=== PATIENT | male | born 1965 | race American Indian/Alaskan Native ===

== ENCOUNTER 2019-02-20 21:19 | Emergency (ER) | payer MEDICARE ==
[2019-02-20 21:30] VITALS: BP 146/91
[2019-02-20 21:58] LABS: Bacteria,Urine 1+ /HPF (Negative); Bilirubin,Urine NEG (Negative); Blood,Urine NEG (Negative); Color,Urine Amber (Yellow); Mucus,Urine 3+ /HPF
[2019-02-20 22:26] LABS: Amphetamine Screen,Urine PRESUMPTIVE NEGATIVE; Benzodiazepines Screen,Urine PRESUMPTIVE NEGATIVE; Methadone Screen,Urine PRESUMPTIVE NEGATIVE; Opiate Screen,Urine PRESUMPTIVE NEGATIVE
[2019-02-20 22:51] LABS: Cannabinoid Screen,Urine PRESUMPTIVE POSITIVE; Cocaine Screen,Urine PRESUMPTIVE POSITIVE
[2019-02-20 22:54] LABS: Basophils % (Auto) 0.9 % (0.0-1.8); Eosinophils # (Auto) 0.1 K/mm3 (0.0-0.4); Eosinophils % (Auto) 1.3 % (0.0-4.3); Hematocrit 45.5 % (35.5-45.6); Lymphocytes # (Auto) 2.4 K/mm3 (1.2-5.4); Lymphocytes % (Auto) 50.9 % (13.4-35.0); Mean Corpuscular HGB Conc 35 % (32-34); Mean Corpuscular Volume 93 fl (84-94); Monocytes # (Auto) 0.3 K/mm3 (0.0-0.8); Monocytes % (Auto) 7.2 % (0.0-7.3); Platelet Count 165 K/mm3 (140-440); Red Blood Count 4.89 M/mm3 (3.65-5.03); Red Cell Distribution Width 14.8 % (13.2-15.2)
[2019-02-20 23:08] LABS: BUN/Creatinine Ratio 15; Blood Urea Nitrogen 12 mg/dL (9-20); Calcium 8.8 mg/dL (8.4-10.2); Hemolysis Index 25
--- NOTE | 2019-02-20 23:09 | Emergency Department Report ---
ED Psych HPI - General Chief Complaint: Medical Clearance Stated Complaint: MEDICAL CLEARANCE Time Seen by Provider: 02/20/19 22:17 Source: patient, EMS Mode of arrival: Ambulatory Limitations: No Limitations - History of Present Illness Initial Comments: 53-year-old male with a past medical history hypertension, PTSD, depression, polysubstance abuse presents to the hospital to be sent from [facility] for medical clearance. Patient states he has been depressed more for the past one month and increasing his use of marijuana, alcohol, and cocaine. Last use of all substances was 2 days ago. Patient reports a history of alcohol withdrawal tremors past. He denies suicidal ideation, homicidal ideation, or psychosis - Related Data Previous Rx's Medication Instructions Recorded Last Taken Type HYDROcodone/ACETAMINOPHEN [[place] 1 each PO Q6H #14 tablet 10/07/13 Unknown Rx 5/325 Tablet] Allergies Allergy/AdvReac Type Severity Reaction Status Date / Time No Known Allergies Allergy Unverified 10/07/13 08:14 ED Review of Systems ROS: Stated complaint: MEDICAL CLEARANCE Other details as noted in HPI Comment: All other systems reviewed and negative ED Past Medical Hx - Past Medical History Previous Medical History?: Yes Hx Hypertension: Yes Hx Psychiatric Treatment: Yes (PTSD, depression, substance) - Surgical History Past Surgical History?: Yes Additional Surgical History: heart cath - Social History Smoking Status: Never Smoker Substance Use Type: Alcohol, Cocaine, Marijuana - Medications Home Medications: Home Medications Medication Instructions Recorded Confirmed Last Taken Type HYDROcodone/ACETAMINOPHEN [[place] 1 each PO Q6H #14 tablet 10/07/13 02/20/19 Unknown Rx 5/325 Tablet] ED Physical Exam - General Limitations: No Limitations - Other Other exam information: General: No limitations, patient is alert in no acute distress Head exam: Atraumatic, normocephalic Eyes exam: Normal appearance, pupils equal reactive to light, extraocular movements intact ENT: Moist mucous membrane Neck exam: Normal inspection, full range of motion, no meningismus nontender Respiratory exam: Clear to auscultation bilateral, no wheezes, rales, crackles Cardiovascular: Normal rate and rhythm, normal heart sounds Abdomen: Soft, nondistended, and nontender, with normal bowel sounds, no rebound, or guarding Extremity: Full range of motion normal inspection no deformity Back: Normal Inspection, full range of motion, no tenderness Neurologic: Alert, oriented x3, cranial nerves intact, no motor or sensory deficit, no tremor Psychiatric: normal affect, normal mood Skin: Warm, dry, intact ED Course Vital Signs 02/20/19 21:30 Temperature 98.7 F Pulse Rate 74 Respiratory 18 Rate Blood Pressure 146/91 [Left] O2 Sat by Pulse 99 Oximetry - Consultations Consultation #1: 02/21/19 mental health ED Medical Decision Making - Lab Data Result diagrams: 02/20/19 22:43 02/20/19 22:43 Lab Results 02/20/19 02/20/19 02/20/19 Range/Units 21:30 21:30 22:43 WBC (4.5-11.0) K/mm3 RBC (3.65-5.03) M/mm3 Hgb (11.8-15.2) gm/dl Hct (35.5-45.6) % MCV (84-94) fl MCH (28-32) pg MCHC (32-34) % RDW (13.2-15.2) % Plt Count (140-440) K/mm3 Lymph % (Auto) (13.4-35.0) % [place] % (Auto) (0.0-7.3) % Eos % (Auto) (0.0-4.3) % Baso % (Auto) (0.0-1.8) % Lymph # (1.2-5.4) K/mm3 [place] # (0.0-0.8) K/mm3 Eos # (0.0-0.4) K/mm3 Baso # (0.0-0.1) K/mm3 Seg Neutrophils % (40.0-70.0) % Seg Neutrophils # (1.8-7.7) K/mm3 Sodium (137-145) mmol/L Potassium (3.6-5.0) mmol/L Chloride (98-107) mmol/L Carbon Dioxide (22-30) mmol/L Anion Gap mmol/L BUN (9-20) mg/dL Creatinine (0.8-1.5) mg/dL Estimated GFR ml/min BUN/Creatinine Ratio % Glucose (75-100) mg/dL Calcium (8.4-10.2) mg/dL Magnesium (1.7-2.3) mg/dL Total Creatine Kinase (55-170) units/L Urine Color Lisa (Yellow) Urine Turbidity Slightly-cloudy (Clear) Urine pH 5.0 (5.0-7.0) Ur Specific [place] 1.036 H (1.003-1.030) Urine Protein 30 mg/dl (Negative) mg/dL Urine Glucose (UA) Neg (Negative) mg/dL Urine Ketones Tr (Negative) mg/dL Urine Blood Neg (Negative) Urine Nitrite Neg (Negative) Urine Bilirubin Neg (Negative) Urine Urobilinogen 4.0 (<2.0) mg/dL Ur Leukocyte Esterase Neg (Negative) Urine WBC (Auto) 4.0 (0.0-6.0) /HPF Urine RBC (Auto) 4.0 (0.0-6.0) /HPF U Epithel Cells (Auto) < 1.0 (0-13.0) /HPF Urine Bacteria (Auto) 1+ (Negative) /HPF Urine Mucus 3+ /HPF Salicylates < 0.3 L (2.8-20.0) mg/dL Urine Opiates Screen Presumptive negative Urine Methadone Screen Presumptive negative Acetaminophen (10.0-30.0) ug/mL Ur Barbiturates Screen Presumptive negative Ur Phencyclidine Scrn Presumptive negative Ur Amphetamines Screen Presumptive negative U Benzodiazepines Scrn Presumptive negative Urine Cocaine Screen Presumptive positive U Marijuana (THC) Screen Presumptive positive Drugs of Abuse Note Disclamer Plasma/Serum Alcohol (0-0.07) % 02/20/19 02/20/19 02/20/19 Range/Units 22:43 22:43 22:43 WBC (4.5-11.0) K/mm3 RBC (3.65-5.03) M/mm3 Hgb (11.8-15.2) gm/dl Hct (35.5-45.6) % MCV (84-94) fl MCH (28-32) pg MCHC (32-34) % RDW (13.2-15.2) % Plt Count (140-440) K/mm3 Lymph % (Auto) (13.4-35.0) % [place] % (Auto) (0.0-7.3) % Eos % (Auto) (0.0-4.3) % Baso % (Auto) (0.0-1.8) % Lymph # (1.2-5.4) K/mm3 [place] # (0.0-0.8) K/mm3 Eos # (0.0-0.4) K/mm3 Baso # (0.0-0.1) K/mm3 Seg Neutrophils % (40.0-70.0) % Seg Neutrophils # (1.8-7.7) K/mm3 Sodium 138 (137-145) mmol/L Potassium 3.7 (3.6-5.0) mmol/L Chloride 102.3 (98-107) mmol/L Carbon Dioxide 24 (22-30) mmol/L Anion Gap 15 mmol/L BUN 12 (9-20) mg/dL Creatinine 0.8 (0.8-1.5) mg/dL Estimated GFR > 60 ml/min BUN/Creatinine Ratio 15 % Glucose 101 H (75-100) mg/dL Calcium 8.8 (8.4-10.2) mg/dL Magnesium (1.7-2.3) mg/dL Total Creatine Kinase (55-170) units/L Urine Color (Yellow) Urine Turbidity (Clear) Urine pH (5.0-7.0) Ur Specific [place] (1.003-1.030) Urine Protein (Negative) mg/dL Urine Glucose (UA) (Negative) mg/dL Urine Ketones (Negative) mg/dL Urine Blood (Negative) Urine Nitrite (Negative) Urine Bilirubin (Negative) Urine Urobilinogen (<2.0) mg/dL Ur Leukocyte Esterase (Negative) Urine WBC (Auto) (0.0-6.0) /HPF Urine RBC (Auto) (0.0-6.0) /HPF U Epithel Cells (Auto) (0-13.0) /HPF Urine Bacteria (Auto) (Negative) /HPF Urine Mucus /HPF Salicylates (2.8-20.0) mg/dL Urine Opiates Screen Urine Methadone Screen Acetaminophen < 5.0 L (10.0-30.0) ug/mL Ur Barbiturates Screen Ur Phencyclidine Scrn Ur Amphetamines Screen U Benzodiazepines Scrn Urine Cocaine Screen U Marijuana (THC) Screen Drugs of Abuse Note Plasma/Serum Alcohol < 0.01 (0-0.07) % 02/20/19 02/20/19 Range/Units 22:43 22:43 WBC 4.6 (4.5-11.0) K/mm3 RBC 4.89 (3.65-5.03) M/mm3 Hgb 16.0 H (11.8-15.2) gm/dl Hct 45.5 (35.5-45.6) % MCV 93 (84-94) fl MCH 33 H (28-32) pg MCHC 35 H (32-34) % RDW 14.8 (13.2-15.2) % Plt Count 165 (140-440) K/mm3 Lymph % (Auto) 50.9 H (13.4-35.0) % [place] % (Auto) 7.2 (0.0-7.3) % Eos % (Auto) 1.3 (0.0-4.3) % Baso % (Auto) 0.9 (0.0-1.8) % Lymph # 2.4 (1.2-5.4) K/mm3 [place] # 0.3 (0.0-0.8) K/mm3 Eos # 0.1 (0.0-0.4) K/mm3 Baso # 0.0 (0.0-0.1) K/mm3 Seg Neutrophils % 39.7 L (40.0-70.0) % Seg Neutrophils # 1.8 (1.8-7.7) K/mm3 Sodium (137-145) mmol/L Potassium (3.6-5.0) mmol/L Chloride (98-107) mmol/L Carbon Dioxide (22-30) mmol/L Anion Gap mmol/L BUN (9-20) mg/dL Creatinine (0.8-1.5) mg/dL Estimated GFR ml/min BUN/Creatinine Ratio % Glucose (75-100) mg/dL Calcium (8.4-10.2) mg/dL Magnesium 2.20 (1.7-2.3) mg/dL Total Creatine Kinase 288 H (55-170) units/L Urine Color (Yellow) Urine Turbidity (Clear) Urine pH (5.0-7.0) Ur Specific [place] (1.003-1.030) Urine Protein (Negative) mg/dL Urine Glucose (UA) (Negative) mg/dL Urine Ketones (Negative) mg/dL Urine Blood (Negative) Urine Nitrite (Negative) Urine Bilirubin (Negative) Urine Urobilinogen (<2.0) mg/dL Ur Leukocyte Esterase (Negative) Urine WBC (Auto) (0.0-6.0) /HPF Urine RBC (Auto) (0.0-6.0) /HPF U Epithel Cells (Auto) (0-13.0) /HPF Urine Bacteria (Auto) (Negative) /HPF Urine Mucus /HPF Salicylates (2.8-20.0) mg/dL Urine Opiates Screen Urine Methadone Screen Acetaminophen (10.0-30.0) ug/mL Ur Barbiturates Screen Ur Phencyclidine Scrn Ur Amphetamines Screen U Benzodiazepines Scrn Urine Cocaine Screen U Marijuana (THC) Screen Drugs of Abuse Note Plasma/Serum Alcohol (0-0.07) % - Medical Decision Making pt accepted by [facility], awaiting transport - Differential Diagnosis drug abuse, ptsd, depression Critical Care Time: No Critical care attestation.: If time is entered above; I have spent that time in minutes in the direct care of this critically ill patient, excluding procedure time. ED Disposition Clinical Impression: Depression, Cocaine abuse, Alcohol abuse, Marijuana abuse, Medical clearance for psychiatric admission Disposition: DC/TX-65 PSY HOSP/PSY UNIT Is pt being admited?: No Condition: Stable Time of Disposition: 04:23 (awaiting transport)
== END 2019-02-21 04:50 ==
LOC: ED 21:19
DX: F32.9 Major depressive disorder, single episode, unspecified (principal); F43.10 Post-traumatic stress disorder, unspecified; F19.10 Other psychoactive substance abuse, uncomplicated; F14.10 Cocaine abuse, uncomplicated; F12.10 Cannabis abuse, uncomplicated; F10.10 Alcohol abuse, uncomplicated; I10 Essential (primary) hypertension
CPT/HCPCS: 36415; 80048; 80307; 81001; 82550; 83735; 85025; 99284; G0480; 80320

== ENCOUNTER 2019-09-24 20:14 | Emergency (ER) | payer MEDICARE ==
[2019-09-24 20:48] VITALS: BP 135/78
--- NOTE | 2019-09-24 20:55 | Event Note ---
ED Screening Note Date of service: 09/24/19 Time: 20:53 ED Screening Note: Pt presents for medical clearance for admission to a detox facility x today states he wants to detox from alcohol denies any hx of alcohol withdrawal seizures +tremors This initial assessment/diagnostic orders/clinical plan/treatment(s) is/are subject to change based on patients health status, clinical progression and re- assessment by fellow clinical providers in the ED. Further treatment and workup at subsequent clinical providers discretion. Patient/guardian urged not to elope from the ED as their condition may be serious if not clinically assessed and managed. Initial orders include: labs
[2019-09-24 21:34] LABS: Bilirubin,Urine NEG (Negative); Blood,Urine NEG (Negative); Color,Urine Amber (Yellow); Mucus,Urine 3+ /HPF; Protein,Urine <15 mg/dL mg/dL (Negative)
[2019-09-24 21:41] LABS: Amphetamine Screen,Urine PRESUMPTIVE NEGATIVE; Benzodiazepines Screen,Urine PRESUMPTIVE NEGATIVE; Methadone Screen,Urine PRESUMPTIVE NEGATIVE; Opiate Screen,Urine PRESUMPTIVE NEGATIVE
[2019-09-24 21:42] LABS: Basophils % (Auto) 0.6 % (0.0-1.8); Eosinophils # (Auto) 0.1 K/mm3 (0.0-0.4); Eosinophils % (Auto) 1.2 % (0.0-4.3); Hematocrit 44.9 % (35.5-45.6); Hemoglobin 15.3 gm/dl (11.8-15.2); Lymphocytes # (Auto) 2.5 K/mm3 (1.2-5.4); Lymphocytes % (Auto) 52.8 % (13.4-35.0); Mean Corpuscular HGB Conc 34 % (32-34); Mean Corpuscular Volume 92 fl (84-94); Monocytes # (Auto) 0.4 K/mm3 (0.0-0.8); Monocytes % (Auto) 7.8 % (0.0-7.3); Platelet Count 193 K/mm3 (140-440); Red Blood Count 4.85 M/mm3 (3.65-5.03); Red Cell Distribution Width 14.2 % (13.2-15.2)
[2019-09-24 21:52] LABS: Cannabinoid Screen,Urine PRESUMPTIVE POSITIVE; Cocaine Screen,Urine PRESUMPTIVE POSITIVE
[2019-09-24 22:05] LABS: Alanine Aminotransferase 9 units/L (7-56); Albumin 4.2 g/dL (3.9-5); BUN/Creatinine Ratio 8; Blood Urea Nitrogen 11 mg/dL (9-20); Calcium 9.1 mg/dL (8.4-10.2); Hemolysis Index 18
--- NOTE | 2019-09-25 02:14 | Emergency Department Report ---
ED Chest Pain HPI - General Chief Complaint: Medical Clearance Stated Complaint: CHEST PAIN Time Seen by Provider: 09/24/19 20:51 Source: EMS Mode of arrival: Ambulatory Limitations: No Limitations - History of Present Illness Initial Comments: Patient is a 54-year-old -[place] male who is currently in treatment at [facility] for detox from crack cocaine as well as for suicidal ideations. Patient complaint is chest pain starting yesterday. Patient was taken to [facility] and was ruled out for [place]. Patient states that earlier in the afternoon he began having chest pain again and was brought here to be medically cleared. Patient states chest pain is gone at this this time. He denies shortness of breath fevers chills cough cold congestion nausea or vomiting. - Related Data Previous Rx's Medication Instructions Recorded Last Taken Type HYDROcodone/ACETAMINOPHEN [[place] 1 each PO Q6H #14 tablet 10/07/13 Unknown Rx 5/325 Tablet] Allergies Allergy/AdvReac Type Severity Reaction Status Date / Time No Known Allergies Allergy Unverified 10/07/13 08:14 Heart Score - HEART Score History: Slightly suspicious EKG: Normal Age: 45-65 Risk factors: No known risk factors Troponin: < normal limit HEART Score: 1 ED Review of Systems ROS: Stated complaint: CHEST PAIN Other details as noted in HPI Comment: All other systems reviewed and negative ED Past Medical Hx - Past Medical History Previous Medical History?: Yes Hx Hypertension: Yes Hx Psychiatric Treatment: Yes (PTSD, depression, substance) - Surgical History Past Surgical History?: Yes Additional Surgical History: heart cath - Social History Smoking Status: Current Some Day Smoker Substance Use Type: Alcohol, Cocaine, Marijuana - Medications Home Medications: Home Medications Medication Instructions Recorded Confirmed Last Taken Type HYDROcodone/ACETAMINOPHEN [[place] 1 each PO Q6H #14 tablet 10/07/13 02/20/19 Unkn own Rx 5/325 Tablet] ED Physical Exam - General Limitations: No Limitations General appearance: alert, in no apparent distress - Head Head exam: Present: atraumatic, normocephalic - Eye Eye exam: Present: normal appearance - ENT ENT exam: Present: mucous membranes moist - Neck Neck exam: Present: normal inspection - Respiratory Respiratory exam: Present: normal lung sounds bilaterally. Absent: respiratory distress, wheezes, rales, rhonchi - Cardiovascular Cardiovascular Exam: Present: regular rate, normal rhythm. Absent: systolic murmur, diastolic murmur, rubs, gallop - GI/Abdominal GI/Abdominal exam: Present: soft, normal bowel sounds. Absent: distended, tenderness, guarding, rebound - Rectal Rectal exam: Present: deferred - Extremities Exam Extremities exam: Present: normal inspection - Back Exam Back exam: Present: normal inspection - Neurological Exam Neurological exam: Present: alert, oriented X3 - Psychiatric Psychiatric exam: Present: normal affect, normal mood - Skin Skin exam: Present: warm, dry, intact, normal color. Absent: rash ED Course Vital Signs 09/24/19 20:31 Temperature 98.6 F Pulse Rate 70 Respiratory 18 Rate Blood Pressure 135/78 O2 Sat by Pulse 100 Oximetry ED Medical Decision Making - Lab Data Result diagrams: 09/24/19 21:16 09/24/19 21:16 Lab Results 09/24/19 09/24/19 09/24/19 Range/Units 21:16 21:16 21:16 WBC 4.6 (4.5-11.0) K/mm3 RBC 4.85 (3.65-5.03) M/mm3 Hgb 15.3 H (11.8-15.2) gm/dl Hct 44.9 (35.5-45.6) % MCV 92 (84-94) fl MCH 32 (28-32) pg MCHC 34 (32-34) % RDW 14.2 (13.2-15.2) % Plt Count 193 (140-440) K/mm3 Lymph % (Auto) 52.8 H (13.4-35.0) % [place] % (Auto) 7.8 H (0.0-7.3) % Eos % (Auto) 1.2 (0.0-4.3) % Baso % (Auto) 0.6 (0.0-1.8) % Lymph # 2.5 (1.2-5.4) K/mm3 [place] # 0.4 (0.0-0.8) K/mm3 Eos # 0.1 (0.0-0.4) K/mm3 Baso # 0.0 (0.0-0.1) K/mm3 Seg Neutrophils % 37.6 L (40.0-70.0) % Seg Neutrophils # 1.7 L (1.8-7.7) K/mm3 Sodium 140 (137-145) mmol/L Potassium 3.7 (3.6-5.0) mmol/L Chloride 102.4 (98-107) mmol/L Carbon Dioxide 25 (22-30) mmol/L Anion Gap 16 mmol/L BUN 11 (9-20) mg/dL Creatinine 1.4 (0.8-1.5) mg/dL Estimated GFR > 60 ml/min BUN/Creatinine Ratio 8 % Glucose 85 (75-100) mg/dL Calcium 9.1 (8.4-10.2) mg/dL Total Bilirubin 0.40 (0.1-1.2) mg/dL AST 12 (5-40) units/L ALT 9 (7-56) units/L Alkaline Phosphatase 63 (35-129) units/L Total Protein 6.8 (6.3-8.2) g/dL Albumin 4.2 (3.9-5) g/dL Albumin/Globulin Ratio 1.6 % Urine Color Lisa (Yellow) Urine Turbidity Clear (Clear) Urine pH 5.0 (5.0-7.0) Ur Specific [place] 1.032 H (1.003-1.030) Urine Protein <15 mg/dl (Negative) mg/dL Urine Glucose (UA) 50 (Negative) mg/dL Urine Ketones Tr (Negative) mg/dL Urine Blood Neg (Negative) Urine Nitrite Neg (Negative) Urine Bilirubin Neg (Negative) Urine Urobilinogen 4.0 (<2.0) mg/dL Ur Leukocyte Esterase Neg (Negative) Urine WBC (Auto) 1.0 (0.0-6.0) /HPF Urine RBC (Auto) 2.0 (0.0-6.0) /HPF Urine Mucus 3+ /HPF Urine Opiates Screen Urine Methadone Screen Acetaminophen (10.0-30.0) ug/mL Ur Barbiturates Screen Ur Phencyclidine Scrn Ur Amphetamines Screen U Benzodiazepines Scrn Urine Cocaine Screen U Marijuana (THC) Screen Drugs of Abuse Note Plasma/Serum Alcohol (0-0.07) % 09/24/19 09/24/19 09/24/19 Range/Units 21:16 21:16 21:16 WBC (4.5-11.0) K/mm3 RBC (3.65-5.03) M/mm3 Hgb (11.8-15.2) gm/dl Hct (35.5-45.6) % MCV (84-94) fl MCH (28-32) pg MCHC (32-34) % RDW (13.2-15.2) % Plt Count (140-440) K/mm3 Lymph % (Auto) (13.4-35.0) % [place] % (Auto) (0.0-7.3) % Eos % (Auto) (0.0-4.3) % Baso % (Auto) (0.0-1.8) % Lymph # (1.2-5.4) K/mm3 [place] # (0.0-0.8) K/mm3 Eos # (0.0-0.4) K/mm3 Baso # (0.0-0.1) K/mm3 Seg Neutrophils % (40.0-70.0) % Seg Neutrophils # (1.8-7.7) K/mm3 Sodium (137-145) mmol/L Potassium (3.6-5.0) mmol/L Chloride (98-107) mmol/L Carbon Dioxide (22-30) mmol/L Anion Gap mmol/L BUN (9-20) mg/dL Creatinine (0.8-1.5) mg/dL Estimated GFR ml/min BUN/Creatinine Ratio % Glucose (75-100) mg/dL Calcium (8.4-10.2) mg/dL Total Bilirubin (0.1-1.2) mg/dL AST (5-40) units/L ALT (7-56) units/L Alkaline Phosphatase (35-129) units/L Total Protein (6.3-8.2) g/dL Albumin (3.9-5) g/dL Albumin/Globulin Ratio % Urine Color (Yellow) Urine Turbidity (Clear) Urine pH (5.0-7.0) Ur Specific [place] (1.003-1.030) Urine Protein (Negative) mg/dL Urine Glucose (UA) (Negative) mg/dL Urine Ketones (Negative) mg/dL Urine Blood (Negative) Urine Nitrite (Negative) Urine Bilirubin (Negative) Urine Urobilinogen (<2.0) mg/dL Ur Leukocyte Esterase (Negative) Urine WBC (Auto) (0.0-6.0) /HPF Urine RBC (Auto) (0.0-6.0) /HPF Urine Mucus /HPF Urine Opiates Screen Presumptive negative Urine Methadone Screen Presumptive negative Acetaminophen < 5.0 L (10.0-30.0) ug/mL Ur Barbiturates Screen Presumptive negative Ur Phencyclidine Scrn Presumptive negative Ur Amphetamines Screen Presumptive negative U Benzodiazepines Scrn Presumptive negative Urine Cocaine Screen Presumptive positive U Marijuana (THC) Screen Presumptive positive Drugs of Abuse Note Disclamer Plasma/Serum Alcohol < 0.01 (0-0.07) % - EKG Data -: EKG Interpreted by Me EKG shows normal: sinus rhythm, axis, intervals, QRS complexes (except for anterior septal Q waves), ST-T waves Rate: normal - Medical Decision Making Patient is chest pain-free at this time. Troponin is within normal limits. There is no acute process EKG. Patient likely was chest pain secondary to cocaine metabolites. Patient discharged home. Critical care attestation.: If time is entered above; I have spent that time in minutes in the direct care of this critically ill patient, excluding procedure time. ED Disposition Clinical Impression: Atypical chest pain, Cocaine abuse Disposition: DC-01 TO HOME OR SELFCARE Is pt being admited?: No Does the pt Need Aspirin: No Condition: Stable Instructions: Chest Pain (ED) Additional Instructions: Abdomen medically cleared at this time for continued mental health assessment Referrals: PRIMARY CAREMD [Primary Care Provider] - 3-5 Days Time of Disposition: 02:16
== END 2019-09-25 02:30 | disposition home or self-care (01) ==
LOC: ED 20:14
DX: R07.89 Other chest pain (principal); F14.10 Cocaine abuse, uncomplicated; F12.10 Cannabis abuse, uncomplicated; F17.200 Nicotine dependence, unspecified, uncomplicated; I10 Essential (primary) hypertension; F43.10 Post-traumatic stress disorder, unspecified
CPT/HCPCS: 36415; 80053; 80307; 80320; 81001; 85025; 93005; 93010; G0480